=== PATIENT | male | born 1980 | race Two or more races ===

== ENCOUNTER 2019-02-23 07:29 | Day surgery (SDC) | payer MEDICAID ==
[2019-02-23] VITALS (8 sets, daily range): BP systolic 117–144; BP diastolic 75–85
[~2019-02-23] VITALS: Ht 185.4 cm; Wt 128.3 kg
[2019-02-23] MEDS ORDERED: normal saline 1000ml 1,000 ML IV PRN (07:55)
[2019-02-23] MEDS ORDERED: albumin 25% 100mL bottle x 1 IV PRN (07:55)
[2019-02-23] MEDS ORDERED: FOLI1TAB16 PO (11:35)
[2019-02-23] MEDS ORDERED: NALT50TA PO (11:35)
[2019-02-23] MEDS ORDERED: SPIR25TA5 PO (11:35)
== END 2019-02-23 10:30 | disposition home or self-care (01) ==
LOC: SSTAY O 07:29
PROVIDERS: ATTEND Radiology Diagnostic Radiology
DX: K70.31 Alcoholic cirrhosis of liver with ascites (principal); D64.9 Anemia, unspecified; G47.30 Sleep apnea, unspecified; D69.6 Thrombocytopenia, unspecified; Z98.890 Other specified postprocedural states; Z79.899 Other long term (current) drug therapy
CPT/HCPCS: 49083; C1729; J7030; P9047

== ENCOUNTER 2019-03-12 07:39 | Day surgery (SDC) | payer MEDICAID ==
[2019-03-12] VITALS (8 sets, daily range): BP systolic 117–134; BP diastolic 73–92
[~2019-03-12] VITALS: Ht 180.3 cm; Wt 124.1 kg
[~2019-03-12 07:39] MED LIST: FOLI1TAB16 PO; NALT50TA PO; SPIR25TA5 PO
[2019-03-12] MEDS ORDERED: albumin 25% 100mL bottle x 1 IV PRN (07:55)
[2019-03-12] MEDS ORDERED: normal saline 1000ml 1,000 ML IV PRN (07:55)
== END 2019-03-12 10:10 | disposition home or self-care (01) ==
LOC: SSTAY O 07:39
PROVIDERS: ATTEND Radiology Diagnostic Radiology
DX: K70.31 Alcoholic cirrhosis of liver with ascites (principal); D64.9 Anemia, unspecified; G47.30 Sleep apnea, unspecified; D69.6 Thrombocytopenia, unspecified; Z79.899 Other long term (current) drug therapy
CPT/HCPCS: 49083; C1729; J7030; P9047

== ENCOUNTER 2019-03-26 08:34 | Day surgery (SDC) | payer MEDICAID ==
[2019-03-26] VITALS (9 sets, daily range): BP systolic 109–142; BP diastolic 69–95
[~2019-03-26] VITALS: Ht 180.3 cm; Wt 116.8 kg
[2019-03-26] MEDS ORDERED: FURO-149 PO (09:02)
[2019-03-26] MEDS ORDERED: NICO1PAT41 TOP (09:02)
[2019-03-26] MEDS ORDERED: PYRI50TA13 PO (09:02)
[2019-03-26] MEDS ORDERED: MULT-1085 PO (09:02)
[2019-03-26] MEDS ORDERED: NADO20TA PO (09:02)
[2019-03-26] MEDS ORDERED: albumin 25% 100mL bottle x 1 IV PRN (09:10)
== END 2019-03-26 10:55 | disposition home or self-care (01) ==
LOC: SSTAY O 08:34
PROVIDERS: ATTEND Radiology Diagnostic Radiology
DX: K70.31 Alcoholic cirrhosis of liver with ascites (principal); D64.9 Anemia, unspecified; G47.30 Sleep apnea, unspecified; D69.6 Thrombocytopenia, unspecified; Z98.890 Other specified postprocedural states; Z79.899 Other long term (current) drug therapy; Z91.030 Bee allergy status
CPT/HCPCS: 49083; C1729; P9047

== ENCOUNTER 2019-04-08 07:22 | Day surgery (SDC) | payer MEDICAID ==
[~2019-04-08] VITALS: Ht 180.3 cm; Wt 113.4 kg
[~2019-04-08 07:22] MED LIST changes: +FURO-149 PO; +MULT-1085 PO; +NADO20TA PO; +NICO1PAT41 TOP; +PYRI50TA13 PO
[2019-04-08] MEDS ORDERED: normal saline 1000ml 1,000 ML IV SCH (07:50)
[2019-04-08 08:00] VITALS: BP 146/97
[2019-04-08 08:45] VITALS: BP 126/76
[2019-04-08 09:00] VITALS: BP 123/75
[2019-04-08 09:15] VITALS: BP 127/82
[2019-04-08 09:25] VITALS: BP 117/71
== END 2019-04-08 09:30 | disposition home or self-care (01) ==
LOC: SSTAY O 07:22
PROVIDERS: ATTEND Radiology Diagnostic Radiology
DX: K70.31 Alcoholic cirrhosis of liver with ascites (principal); D64.9 Anemia, unspecified; G47.30 Sleep apnea, unspecified; D69.6 Thrombocytopenia, unspecified; Z98.890 Other specified postprocedural states; Z91.030 Bee allergy status; Z79.899 Other long term (current) drug therapy
CPT/HCPCS: 49083; C1729; J7030

== ENCOUNTER 2019-04-30 06:43 | Day surgery (SDC) | payer MEDICAID ==
[~2019-04-30] VITALS: Ht 180.3 cm; Wt 111.2 kg
[2019-04-30] VITALS (7 sets, daily range): BP systolic 114–147; BP diastolic 64–85
[2019-04-30] MEDS ORDERED: LIDOcaine 1% 30ml preserv. free vial IJ STA (06:56)
[2019-04-30] MEDS ORDERED: normal saline 1000ml 1,000 ML IV PRN (07:00)
[2019-04-30] MEDS ORDERED: albumin 25% 100mL bottle x 1 IV PRN (07:00)
== END 2019-04-30 09:55 | disposition home or self-care (01) ==
LOC: SSTAY O 06:43
PROVIDERS: ATTEND Radiology Vascular & Interventional Radiology
DX: K70.31 Alcoholic cirrhosis of liver with ascites (principal); R16.0 Hepatomegaly, not elsewhere classified; R16.1 Splenomegaly, not elsewhere classified; D64.9 Anemia, unspecified; G47.30 Sleep apnea, unspecified; D69.6 Thrombocytopenia, unspecified; Z98.890 Other specified postprocedural states; Z79.899 Other long term (current) drug therapy; Z91.030 Bee allergy status
CPT/HCPCS: 49083; C1729; J2001; J7030

== ENCOUNTER 2019-06-01 06:41 | Day surgery (SDC) | payer MEDICAID ==
[~2019-06-01] VITALS: Ht 180.3 cm; Wt 115.3 kg
[2019-06-01] MEDS ORDERED: albumin 25% 100mL bottle x 1 IV PRN (07:05)
[2019-06-01] MEDS ORDERED: normal saline 1000ml 1,000 ML IV PRN (07:05)
[2019-06-01 07:25] VITALS: BP 145/107
[2019-06-01 08:10] VITALS: BP 155/105
[2019-06-01 08:15] VITALS: BP 154/93
[2019-06-01 08:30] VITALS: BP 145/86
[2019-06-01 08:35] VITALS: BP 148/91
[2019-06-01 08:45] VITALS: BP 135/75
== END 2019-06-01 09:03 | disposition home or self-care (01) ==
LOC: SSTAY O 06:41
PROVIDERS: ATTEND Radiology Diagnostic Radiology
DX: K70.31 Alcoholic cirrhosis of liver with ascites (principal); D64.9 Anemia, unspecified; G47.30 Sleep apnea, unspecified; D69.6 Thrombocytopenia, unspecified; Z98.890 Other specified postprocedural states; Z79.899 Other long term (current) drug therapy
CPT/HCPCS: 49083; C1729; J7030

== ENCOUNTER 2020-01-10 08:22 | Inpatient (IN) | payer MEDICAID ==
[~2020-01-10] VITALS: Ht 180.3 cm; Wt 127.0 kg
[2020-01-10] MEDS ORDERED: LORazepam 2 mg/ml vial IV ONE ×4 (08:40→13:20)
[2020-01-10] MEDS ORDERED: normal saline 1000ML IV soln IVB ONE (08:40)
[2020-01-10 09:03] LABS: HEMOGLOBIN 9.7 g/dl (14.0-17.9); LYMPHOCYTES # (AUTO) 0.6 X10'3 (1.1-4.8); NEUTROPHILS # (AUTO) 3.3 X10'3 (1.8-7.7); WHITE BLOOD COUNT 4.3 X10'3 (4.5-11.0)
[2020-01-10 09:05] LABS: BASOPHILS # (AUTO) 0.1 X10'3 (0-0.2); BASOPHILS % (AUTO) 1.6 % (0-1); EOSINOPHILS % (AUTO) 0.1 % (0-6); LYMPHOCYTES % (AUTO) 13.8 % (21-51); MEAN CORPUSCULAR HEMOGLOBIN 18.8 PG (27.0-31.0); MEAN CORPUSCULAR HGB CONC 29.2 g/dL (33.0-36.5); MEAN CORPUSCULAR VOLUME 64.3 FL (78-98); MEAN PLATELET VOLUME 9.5 FL (7.4-10.4); MONOCYTES # (AUTO) 0.3 X10'3 (0-0.9); MONOCYTES % (AUTO) 7.3 % (2-12); NEUTROPHILS % (AUTO) 77.2 % (42-75); PLATELET COUNT 102 X10'3 (140-440); RED BLOOD COUNT 5.16 X10'6 (4.70-6.10); RED CELL DISTRIBUTION WIDTH 20.8 % (11.5-14.5)
[2020-01-10 09:16] LABS: ALANINE AMINOTRANSFERASE 38 U/L (12-78); ALBUMIN 3.1 G/DL (3.4-5.0); ALBUMIN/GLOBULIN RATIO 0.8 (1.1-1.5); ALKALINE PHOSPHATASE 128 IU/L (46-116); ANION GAP 11 (8-16); ASPARTATE AMINO TRANSFERASE 101 U/L (10-37); BILIRUBIN,TOTAL 2.9 MG/DL (0.1-1.0); BLOOD UREA NITROGEN 6 MG/DL (7-18); BUN/CREATININE RATIO 7.3 (5.4-32.0); CALCIUM 8.1 MG/DL (8.5-10.1); CHLORIDE 103 MMOL/L (99-107); CREATININE 0.82 MG/DL (0.60-1.10); GLUCOSE 139 MG/DL (70-104); POTASSIUM 3.2 MMOL/L (3.5-5.1); SODIUM 143 MMOL/L (135-145); TOTAL CARBON DIOXIDE 29.4 MMOL/L (24-32); TOTAL PROTEIN 7.2 G/DL (6.4-8.2); eGFR > 90 ML/MIN
[2020-01-10 09:23] LABS: MAGNESIUM 1.5 MG/DL (1.5-2.4)
[2020-01-10 09:24] LABS: HEMATOCRIT 33.2 % (42.0-52.0)
[2020-01-10 10:10] LABS: ANISOCYTOSIS 3+; MICROCYTOSIS 2+; PLATELET ESTIMATE DECREASED
[2020-01-10 10:13] LABS: HYPOCHROMASIA 2+
[2020-01-10] MEDS ORDERED: potassium Cl 20 mEq SR tablet PO PRN ×2 (10:45)
[2020-01-10] MEDS ORDERED: potassium CL 10mEq/100ml bag 100 ML IV PRN (10:45)
[2020-01-10] MEDS ORDERED: magnesium 2GM in 50ml NS 50 ML IV ONE (10:45)
[2020-01-10] MEDS ORDERED: LORazepam 1 MG tablet PO ONE (11:00)
--- NOTE | 2020-01-10 11:00 | NUR ---
New order for Ativan 4mg, PO received from [facility] for [facility].
[2020-01-10] MEDS ORDERED: albumin (human) 25% 100 ML IV solution IV ONE (11:10)
[2020-01-10] MEDS ORDERED: NO HOME MEDS (12:21)
[2020-01-10] MEDS ORDERED: thiamine 100mg/ml 2ml inj. IV ONE ×2 (12:50→13:10)
[2020-01-10] MEDS ORDERED: phenobarbital inj 260 MG in normal saline 100ml IV soln 98 ML IV ONE (12:50)
[2020-01-10] MEDS ORDERED: folic acid 1mg tablet PO ONE (12:50)
[2020-01-10] MEDS ORDERED: LORazepam 2 mg/ml vial IV PRN ×2 (13:10)
[2020-01-10] MEDS ORDERED: acetaminophen 325mg tablet PO PRN (13:10)
[2020-01-10] MEDS ORDERED: dextrose 50%-water 50ml dispensing syringe IV PRN (13:10)
[2020-01-10] MEDS ORDERED: ondansetron/PF 4mg/2ml inj IV PRN (13:10)
[2020-01-10] MEDS ORDERED: magnesium hydroxide 30ml (MOM) UD suspension PO PRN (13:10)
[2020-01-10] MEDS ORDERED: mag hydrox/Alum hydrox/simeth 30ml oral suspension PO PRN (13:10)
[2020-01-10] MEDS ORDERED: iohexol 350MG/ML 100ml bottle IV ONE (13:14)
[2020-01-10 13:56] LABS: LIPASE 274 U/L (73-393)
--- NOTE | 2020-01-10 14:49 | NUR ---
RECEIVED TELEPHONE REPORT LAZARUS SINGH RN
[2020-01-10 15:00] VITALS: BP 158/104
--- NOTE | 2020-01-10 15:00 | NUR ---
RECEIVED FROM ED VIA [facility]. SOB, AT BEDSIDE.
--- NOTE | 2020-01-10 15:36 | NUR ---
PAGER ID: [phone] MESSAGE: DR. BEAULIEU, [id number], REQUESTING NICOTINE PATCH(FOR PT), SMOKES 7 CIGS/DAY. CAN I PLEASE DC THE NS AT 20CC/HOUR? WITH ALL HIS MOVEMENT, I THINK WE WOULD LOOSE HIS PIV. DIANA, [id number]. TY
[2020-01-10] MEDS ORDERED: heparin 10,000 units/1 ML INJ IV PRN (15:40)
[2020-01-10] MEDS ORDERED: heparin 10,000 units/1 ML INJ IV ONE (15:40)
--- NOTE | 2020-01-10 16:15 | NUR ---
ORDER FOR HEPARIN GTT. NO PTT. DISCUSSED WITH SHILPA CORONADO RN. STATES YOU DON'T HAVE TO WAIT FOR BASELINE PTT, OKAY TO START GTT"
[2020-01-10] MEDS: heparin 25,000 UNIT/250ml bag 250 ML IV SCH (16:44)
[2020-01-10] MEDS: nicotine 14mg patch - 24hr TD SCH (17:12)
[2020-01-10] MEDS: normal saline 1000ml 1,000 ML IV SCH (17:13)
[2020-01-10 18:00] VITALS: BP 161/96
--- NOTE | 2020-01-10 18:34 | NUR ---
Patient in room PCU 3028. I have received report from Gino SWAN and had the opportunity to ask questions and assume patient care.
--- NOTE | 2020-01-10 18:36 | NUR ---
Problems reprioritized. Patient report given, questions answered & plan of care reviewed with SOSA KATHLEEN.
[2020-01-10] MEDS ORDERED: heparin, porcine 5000 units/ml vial SQ SCH (20:00)
[2020-01-10] MEDS: CefTRIAXone 2gm/D5W 50ml 50 ML IV SCH (21:30)
[2020-01-10 22:00] VITALS: BP 133/87
--- NOTE | 2020-01-11 01:35 | NUR ---
Patient in room PCU 3028. I have received report from Sakshi SWAN and had the opportunity to ask questions and assume patient care.
[2020-01-11] MEDS: morphine 2 MG/ML inj. syringe IV PRN ×5 (02:54→22:46)
[2020-01-11 02:57] VITALS: BP 136/75
[2020-01-11 02:59] LABS: LYMPHOCYTES # (AUTO) 0.9 X10'3 (1.1-4.8); MEAN CORPUSCULAR HGB CONC 29.3 g/dL (33.0-36.5); WHITE BLOOD COUNT 3.2 X10'3 (4.5-11.0)
[2020-01-11 03:03] LABS: BASOPHILS % (AUTO) 1.1 % (0-1); EOSINOPHILS % (AUTO) 1.5 % (0-6); HEMATOCRIT 30.2 % (42.0-52.0); HEMOGLOBIN 8.8 g/dl (14.0-17.9); LYMPHOCYTES % (AUTO) 27.6 % (21-51); MEAN CORPUSCULAR HEMOGLOBIN 19.3 PG (27.0-31.0); MEAN PLATELET VOLUME 9.6 FL (7.4-10.4); MONOCYTES # (AUTO) 0.2 X10'3 (0-0.9); MONOCYTES % (AUTO) 7.2 % (2-12); NEUTROPHILS % (AUTO) 62.6 % (42-75); PLATELET COUNT 85 X10'3 (140-440); RED BLOOD COUNT 4.58 X10'6 (4.70-6.10); RED CELL DISTRIBUTION WIDTH 21.2 % (11.5-14.5)
[2020-01-11 03:10] LABS: ALANINE AMINOTRANSFERASE 28 U/L (12-78); ALBUMIN 2.9 G/DL (3.4-5.0); ALBUMIN/GLOBULIN RATIO 0.8 (1.1-1.5); ALKALINE PHOSPHATASE 99 IU/L (46-116); ANION GAP 6 (8-16); ASPARTATE AMINO TRANSFERASE 76 U/L (10-37); BILIRUBIN,TOTAL 2.6 MG/DL (0.1-1.0); BLOOD UREA NITROGEN 6 MG/DL (7-18); BUN/CREATININE RATIO 7.1 (5.4-32.0); CALCIUM 8.1 MG/DL (8.5-10.1); CHLORIDE 106 MMOL/L (99-107); CREATININE 0.84 MG/DL (0.60-1.10); GLUCOSE 84 MG/DL (70-104); POTASSIUM 3.6 MMOL/L (3.5-5.1); SODIUM 144 MMOL/L (135-145); TOTAL CARBON DIOXIDE 31.9 MMOL/L (24-32); TOTAL PROTEIN 6.5 G/DL (6.4-8.2); eGFR > 90 ML/MIN
[2020-01-11 03:24] LABS: ANISOCYTOSIS 3+; HYPOCHROMASIA 2+; PLATELET ESTIMATE DECREASED
[2020-01-11 03:25] LABS: MICROCYTOSIS 2+
[2020-01-11] MEDS: heparin 25,000 UNIT/250ml bag 250 ML IV SCH ×2 (05:13→19:15)
--- NOTE | 2020-01-11 06:25 | NUR ---
Problems reprioritized. Patient report given, questions answered & plan of care reviewed with Sofie SWAN.
--- NOTE | 2020-01-11 06:47 | NUR ---
Patient in room PCU 3028. I have received report from Yady SWAN and had the opportunity to ask questions and assume patient care.
[2020-01-11 07:00] VITALS: BP 132/87
[2020-01-11] MEDS: CefTRIAXone 2gm/D5W 50ml 50 ML IV SCH (07:03)
--- NOTE | 2020-01-11 07:47 | NUR ---
Called Angio/IR department, spoke to the staff to let them know patient is currently on heparin drip for treatment of PE
[2020-01-11] MEDS ORDERED: folic acid inj. 2 MG, thiamine inj. 100 MG, MVI, adult No.4 with vit. K 10 ML in dextro... IV SCH ×4 (08:00)
[2020-01-11] MEDS: nicotine 14mg patch - 24hr TD SCH (08:40)
--- NOTE | 2020-01-11 09:10 | NUR ---
Called lab to get the PTT draw done as patient is on Heparin drip
--- NOTE | 2020-01-11 09:25 | NUR ---
I notified the yarn salvager on the floor that this patient has not had his PTT drawn yet and that if she can do it NAIDA because it was due 0845am. She said she will do it next after the patient from another room
--- NOTE | 2020-01-11 09:31 | NUR ---
Paged Dr. Epstein PAGER ID: [phone] MESSAGE: REBECCA Carrizales RN ext [phone]. RE: Marlon Curiel. IR dept aware that patient is on Heparin drip and that they advised me to ask what you want us to do in regards to thoracentesis order
--- NOTE | 2020-01-11 10:34 | NUR ---
Dr. Epstein seen patient and spoke to the at bedside. Dr. Epstein aware that thoracentesis will not get done today due to heparin drip, he ordered to have heparin drip hold tomorrow at 06:00am. I called IR department to let them know the plan about thoracentesis tomorrow. The staff I spoke (I forgot her name) asked me to clarify with Dr. Epstein if he wants it done since patient just had thoracentesis done yesterday at ER
--- NOTE | 2020-01-11 10:43 | NUR ---
PAGER ID: [phone] MESSAGE: REBECCA Carrizales RN ext [phone]. RE: Marlon Curiel. IR dept asking if you still want thoracentesis done tomorrow since patient just had it yesterday at ER.
--- NOTE | 2020-01-11 10:47 | NUR ---
Paged Vascular to get the bilateral venous ultrasound of the both legs done today
[2020-01-11 11:00] VITALS: BP 140/92
--- NOTE | 2020-01-11 11:25 | NUR ---
I spoke to IR staff Nicko letting him know that I already paged the doctor to ask about their request to clarify thoracentesis if he still want it done since patient just had thoracentesis done at ER yesterday. I let him know we will just prep the patient tomorrow and he told me that they will have to scan the patient tomorrow to see if there is enough fluid to take out
--- NOTE | 2020-01-11 11:48 | NUR ---
Sakshi RN from came talked to me about the thoracentesis that it could not get done today and may be not tomorrow either as it was just done yesterday at ER. I asked her to contact Dr. Epstein to let him know about this as I already paged him and has not responded to my page message yet. She said she will try to contact Dr. Epstein also
[2020-01-11 15:00] VITALS: BP 142/87
--- NOTE | 2020-01-11 17:56 | NUR ---
Paged Dr. Epstein PAGER ID: [phone] MESSAGE: Surgical Flr Sofie RN ext [phone]. RE: Marlon Curiel. Patient requesting Covid19 test so they can have peace of mind if he is positive or negative.
[2020-01-11 18:00] VITALS: BP 146/78
--- NOTE | 2020-01-11 18:00 | NUR ---
Patient in room PCU 3028. I have received report from Melisa SWAN and had the opportunity to ask questions and assume patient care.
--- NOTE | 2020-01-11 18:53 | NUR ---
Problems reprioritized. Patient report given, questions answered & plan of care reviewed with Sakshi SWAN.
[2020-01-11] MEDS: LORazepam 1 MG tablet PO PRN (21:06)
[2020-01-11 22:00] VITALS: BP 133/81
[2020-01-12] VITALS (8 sets, daily range): BP systolic 112–147; BP diastolic 72–94
[2020-01-12] MEDS: morphine 2 MG/ML inj. syringe IV PRN ×4 (02:54→21:01)
[2020-01-12] MEDS: LORazepam 1 MG tablet PO PRN ×2 (04:36→12:06)
[2020-01-12] MEDS: heparin 25,000 UNIT/250ml bag 250 ML IV SCH ×2 (05:18→16:38)
[2020-01-12 05:26] LABS: EOSINOPHILS # (AUTO) 0.1 X10'3 (0-0.9); MONOCYTES # (AUTO) 0.2 X10'3 (0-0.9); RED BLOOD COUNT 4.75 X10'6 (4.70-6.10); WHITE BLOOD COUNT 3.2 X10'3 (4.5-11.0)
[2020-01-12 05:28] LABS: BASOPHILS % (AUTO) 1.1 % (0-1); EOSINOPHILS % (AUTO) 1.9 % (0-6); LYMPHOCYTES % (AUTO) 29.9 % (21-51); MEAN CORPUSCULAR HGB CONC 29.2 g/dL (33.0-36.5); MEAN CORPUSCULAR VOLUME 65.2 FL (78-98); MONOCYTES % (AUTO) 5.2 % (2-12); NEUTROPHILS % (AUTO) 61.9 % (42-75); RED CELL DISTRIBUTION WIDTH 21.4 % (11.5-14.5)
[2020-01-12 05:34] LABS: ALANINE AMINOTRANSFERASE 28 U/L (12-78); ALBUMIN 2.8 G/DL (3.4-5.0); ALBUMIN/GLOBULIN RATIO 0.8 (1.1-1.5); ALKALINE PHOSPHATASE 108 IU/L (46-116); ANION GAP 7 (8-16); ASPARTATE AMINO TRANSFERASE 88 U/L (10-37); BLOOD UREA NITROGEN 9 MG/DL (7-18); BUN/CREATININE RATIO 10.1 (5.4-32.0); CHLORIDE 105 MMOL/L (99-107); CREATININE 0.89 MG/DL (0.60-1.10); GLUCOSE 99 MG/DL (70-104); POTASSIUM 3.5 MMOL/L (3.5-5.1); SODIUM 142 MMOL/L (135-145); TOTAL CARBON DIOXIDE 30.3 MMOL/L (24-32); TOTAL PROTEIN 6.4 G/DL (6.4-8.2); eGFR > 90 ML/MIN
[2020-01-12 05:47] LABS: PLATELET COUNT 88 X10'3 (140-440)
--- NOTE | 2020-01-12 05:55 | NUR ---
Heparin gtt stopped per Dr Epstein miscellaneous order to stop at 6am for possible thoracentesis later today.
--- NOTE | 2020-01-12 06:15 | NUR ---
Patient in room PCU 3028. I have received report from Sakshi SWAN and had the opportunity to ask questions and assume patient care. Pt. awoke on entering room, asking for antinausea/pain medication.
--- NOTE | 2020-01-12 06:19 | NUR ---
Problems reprioritized. Patient report given, questions answered & plan of care reviewed with Karyn SWAN and Que SWAN.
--- NOTE | 2020-01-12 06:25 | NUR ---
Patient in room PCU 3028. I have received report from SOSA Cantor and had the opportunity to ask questions and assume patient care. Pt resting comfortably, CPAP on.
[2020-01-12 06:31] LABS: ANISOCYTOSIS 2+; LARGE PLATELETS FEW; PLATELET ESTIMATE DECREASED
[2020-01-12 06:32] LABS: HYPOCHROMASIA 2+
[2020-01-12 06:33] LABS: MICROCYTOSIS 2+; STOMATOCYTES 1+; TARGET CELLS FEW
[2020-01-12] MEDS: nicotine 14mg patch - 24hr TD SCH (08:28)
[2020-01-12] MEDS: CefTRIAXone 2gm/D5W 50ml 50 ML IV SCH (08:28)
[2020-01-12] MEDS: folic acid 1mg tablet PO SCH (08:28)
[2020-01-12] MEDS: thiamine 100mg tablet PO SCH (08:29)
[2020-01-12] MEDS: multivitamins, therapeutics tablet PO SCH (08:29)
--- NOTE | 2020-01-12 11:09 | NUR ---
Paged Dr Epstein PAGER ID: [phone] MESSAGE: Re: Veena Marlon [id number] There is no order in the computer for a thoracentesis, would you like me to put one in? Thanks Karyn Tidwell [phone]
[2020-01-12] MEDS: normal saline 1000ml 1,000 ML IV SCH ×2 (13:06→16:34)
--- NOTE | 2020-01-12 14:00 | NUR ---
Per Dr Epstein's orders, place patient back on the heparin gtt per DVT protocol. And stop Eliquis.
[2020-01-12] MEDS ORDERED: apixaban 5mg tablet PO SCH ×2 (15:40→20:00)
[2020-01-12] MEDS ORDERED: heparin 10,000 units/1 ML INJ IV ONE (16:15)
[2020-01-12] MEDS ORDERED: heparin 10,000 units/1 ML INJ IV PRN (16:15)
--- NOTE | 2020-01-12 18:00 | NUR ---
[place]rientee documentation: I have reviewed and agree with all interventions, assessments performed and documented by SOSA Grey.
--- NOTE | 2020-01-12 18:16 | NUR ---
Problems reprioritized. Patient report given, questions answered & plan of care reviewed with SOSA Santiago. Pt resting comfortably, using CPAP.
--- NOTE | 2020-01-12 18:17 | NUR ---
[place] Medication Administration: For this medication-pass time frame, all medication were reviewed, dispensed, administered and documented per hospital policy by SOSA Grey.
--- NOTE | 2020-01-12 23:00 | NUR ---
pt PTT 51 which is therapeutic, will continue heparin GTT at same rate and continue to monitor pt closely
--- NOTE | 2020-01-13 00:39 | NUR ---
PAGER ID: [phone] MESSAGE: Marlon Curiel [id number] admitted for alcohol withdrawal pt is requesting for something to help him sleep please? thank you Pamela SWAN [phone]
[2020-01-13] MEDS ORDERED: diphenhydrAMINE 50 mg/ml inj IV PRN (00:40)
[2020-01-13] MEDS: morphine 2 MG/ML inj. syringe IV PRN ×3 (01:37→19:31)
[2020-01-13] MEDS: heparin 25,000 UNIT/250ml bag 250 ML IV SCH ×4 (05:53→17:27)
[2020-01-13 06:08] LABS: EOSINOPHILS # (AUTO) 0.1 X10'3 (0-0.9); HEMOGLOBIN 9.1 g/dl (14.0-17.9); LYMPHOCYTES # (AUTO) 0.9 X10'3 (1.1-4.8); MEAN CORPUSCULAR HEMOGLOBIN 19.1 PG (27.0-31.0); MEAN CORPUSCULAR HGB CONC 29.2 g/dL (33.0-36.5); MEAN CORPUSCULAR VOLUME 65.5 FL (78-98); MONOCYTES # (AUTO) 0.2 X10'3 (0-0.9); NEUTROPHILS # (AUTO) 2.1 X10'3 (1.8-7.7); WHITE BLOOD COUNT 3.3 X10'3 (4.5-11.0)
[2020-01-13 06:11] LABS: BASOPHILS # (AUTO) 0.1 X10'3 (0-0.2); BASOPHILS % (AUTO) 1.6 % (0-1); EOSINOPHILS % (AUTO) 1.8 % (0-6); HEMATOCRIT 31.2 % (42.0-52.0); LYMPHOCYTES % (AUTO) 26.3 % (21-51); MONOCYTES % (AUTO) 7.2 % (2-12); NEUTROPHILS % (AUTO) 63.1 % (42-75); PLATELET COUNT 90 X10'3 (140-440); RED BLOOD COUNT 4.77 X10'6 (4.70-6.10); RED CELL DISTRIBUTION WIDTH 21.3 % (11.5-14.5)
--- NOTE | 2020-01-13 06:15 | NUR ---
Patient in room U 3028. I have received report from Pamela SWAN and had the opportunity to ask questions and assume patient care. Patient sleeping in bed.
[2020-01-13 06:24] LABS: ALANINE AMINOTRANSFERASE 29 U/L (12-78); ALBUMIN 2.6 G/DL (3.4-5.0); ALBUMIN/GLOBULIN RATIO 0.7 (1.1-1.5); ALKALINE PHOSPHATASE 113 IU/L (46-116); ANION GAP 7 (8-16); ASPARTATE AMINO TRANSFERASE 80 U/L (10-37); BILIRUBIN,TOTAL 1.5 MG/DL (0.1-1.0); BLOOD UREA NITROGEN 9 MG/DL (7-18); BUN/CREATININE RATIO 11.1 (5.4-32.0); CHLORIDE 106 MMOL/L (99-107); CREATININE 0.81 MG/DL (0.60-1.10); GLUCOSE 91 MG/DL (70-104); POTASSIUM 3.6 MMOL/L (3.5-5.1); SODIUM 141 MMOL/L (135-145); TOTAL CARBON DIOXIDE 28.3 MMOL/L (24-32); TOTAL PROTEIN 6.2 G/DL (6.4-8.2); eGFR > 90 ML/MIN
--- NOTE | 2020-01-13 06:35 | NUR ---
Patient in room PCU 3028. I have received report from SOSA Santiago and had the opportunity to ask questions and assume patient care. Pt sleeping comfortably, CPAP in place, heparin gtt running at 2000u/hr and NS running at 20ml/hr.
--- NOTE | 2020-01-13 06:43 | NUR ---
Problems reprioritized. Patient report given, questions answered & plan of care reviewed with Karyn SWAN.
[2020-01-13 07:00] VITALS: BP 128/85
[2020-01-13] MEDS: multivitamins, therapeutics tablet PO SCH (08:49)
[2020-01-13] MEDS: nicotine 14mg patch - 24hr TD SCH (08:50)
[2020-01-13] MEDS: folic acid 1mg tablet PO SCH (08:50)
[2020-01-13] MEDS: CefTRIAXone 2gm/D5W 50ml 50 ML IV SCH (08:50)
[2020-01-13] MEDS: thiamine 100mg tablet PO SCH (08:54)
[2020-01-13] MEDS: LORazepam 1 MG tablet PO PRN ×2 (10:26→19:31)
[2020-01-13 10:34] LABS: ANISOCYTOSIS 3+; MICROCYTOSIS 2+; PLATELET ESTIMATE DECREASED
[2020-01-13 10:35] LABS: STOMATOCYTES 1+
[2020-01-13 10:36] LABS: SCHISTOCYTES FEW
--- NOTE | 2020-01-13 10:45 | NUR ---
Per Dr Epstein's orders, stop the use of CPAP and only use nasal cannula 2L. Keep 02 greater than 90%.
[2020-01-13 11:00] VITALS: BP 129/77
[2020-01-13 15:00] VITALS: BP 107/68
--- NOTE | 2020-01-13 18:26 | NUR ---
Problems reprioritized. Patient report given, questions answered & plan of care reviewed with SOSA Marsh. Patient stable at transfer of care.
--- NOTE | 2020-01-13 18:27 | NUR ---
[place]rientee documentation: I have reviewed and agree with all interventions, assessments performed and documented by SOSA Grey.
--- NOTE | 2020-01-13 18:28 | NUR ---
[place]rientee documentation: I have reviewed and agree with all interventions, assessments performed and documented by SOSA Grey.
--- NOTE | 2020-01-13 18:34 | NUR ---
Patient in room PCU 3028. I have received report from Yen SWAN and had the opportunity to ask questions and assume patient care.
[2020-01-13 19:00] VITALS: BP 145/87
[2020-01-13 23:00] VITALS: BP 149/82
[2020-01-14] MEDS: LORazepam 1 MG tablet PO PRN ×2 (00:40→04:58)
[2020-01-14] MEDS: morphine 2 MG/ML inj. syringe IV PRN ×3 (00:40→09:20)
[2020-01-14 03:00] VITALS: BP 138/85
[2020-01-14] MEDS: heparin 25,000 UNIT/250ml bag 250 ML IV SCH (04:57)
--- NOTE | 2020-01-14 06:27 | NUR ---
Problems reprioritized. Patient report given, questions answered & plan of care reviewed with Karyn SWAN.
[2020-01-14 06:29] LABS: EOSINOPHILS # (AUTO) 0.1 X10'3 (0-0.9); HEMOGLOBIN 9.4 g/dl (14.0-17.9); LYMPHOCYTES # (AUTO) 0.8 X10'3 (1.1-4.8); WHITE BLOOD COUNT 3.7 X10'3 (4.5-11.0)
[2020-01-14 06:31] LABS: BASOPHILS % (AUTO) 1.3 % (0-1); HEMATOCRIT 31.4 % (42.0-52.0); MEAN CORPUSCULAR HEMOGLOBIN 19.6 PG (27.0-31.0); MEAN CORPUSCULAR HGB CONC 29.8 g/dL (33.0-36.5); MEAN CORPUSCULAR VOLUME 65.6 FL (78-98); MEAN PLATELET VOLUME 9.5 FL (7.4-10.4); MONOCYTES # (AUTO) 0.3 X10'3 (0-0.9); NEUTROPHILS # (AUTO) 2.5 X10'3 (1.8-7.7); NEUTROPHILS % (AUTO) 66.7 % (42-75); PLATELET COUNT 82 X10'3 (140-440); RED BLOOD COUNT 4.79 X10'6 (4.70-6.10)
[2020-01-14 06:40] LABS: ALANINE AMINOTRANSFERASE 30 U/L (12-78); ALBUMIN 2.7 G/DL (3.4-5.0); ALBUMIN/GLOBULIN RATIO 0.7 (1.1-1.5); ALKALINE PHOSPHATASE 114 IU/L (46-116); ANION GAP 7 (8-16); ASPARTATE AMINO TRANSFERASE 69 U/L (10-37); BILIRUBIN,TOTAL 1.8 MG/DL (0.1-1.0); BLOOD UREA NITROGEN 8 MG/DL (7-18); BUN/CREATININE RATIO 10.4 (5.4-32.0); CHLORIDE 105 MMOL/L (99-107); CREATININE 0.77 MG/DL (0.60-1.10); GLUCOSE 94 MG/DL (70-104); POTASSIUM 3.7 MMOL/L (3.5-5.1); SODIUM 139 MMOL/L (135-145); TOTAL CARBON DIOXIDE 27.1 MMOL/L (24-32); TOTAL PROTEIN 6.5 G/DL (6.4-8.2); eGFR > 90 ML/MIN
--- NOTE | 2020-01-14 06:53 | NUR ---
Patient in room PCU 3028. I have received report from Maximo SWAN and had the opportunity to ask questions and assume patient care.
[2020-01-14 07:00] VITALS: BP 145/78
[2020-01-14 07:04] LABS: LARGE PLATELETS FEW; PLATELET ESTIMATE DECREASED
[2020-01-14 07:05] LABS: ANISOCYTOSIS 3+; HYPOCHROMASIA 2+; MICROCYTOSIS 2+; POLYCHROMASIA 1+; STOMATOCYTES 1+
--- NOTE | 2020-01-14 07:22 | NUR ---
Patient was found in bathroom. Patient pulled both IV out including heoparin drip. Patient states he is going home. Xray in home now.
[2020-01-14] MEDS: thiamine 100mg tablet PO SCH (07:53)
[2020-01-14] MEDS: folic acid 1mg tablet PO SCH (07:53)
[2020-01-14] MEDS: multivitamins, therapeutics tablet PO SCH (07:53)
[2020-01-14] MEDS: nicotine 14mg patch - 24hr TD SCH (07:54)
--- NOTE | 2020-01-14 08:15 | NUR ---
Paged PICC nurse Re: Marlon Curiel [id number]. Needing a line, very hard stick. Please and Thank you Karyn SWAN [phone]
[2020-01-14] MEDS: CefTRIAXone 2gm/D5W 50ml 50 ML IV SCH (09:20)
--- NOTE | 2020-01-14 10:02 | NUR ---
Dr. Epstein at bedside with patient and nurse. New orders is to Stop Heparin and start discharge process. Will continue to monitor,
[2020-01-14 11:00] VITALS: BP 167/86
[2020-01-14] MEDS ORDERED: FOLI0.4T2 PO (13:12)
[2020-01-14] MEDS ORDERED: THIA100T70 PO (13:12)
[2020-01-14] MEDS ORDERED: LEVO500T89 PO (13:12)
[2020-01-14] MEDS ORDERED: APIX5TAB3 PO (13:12)
--- NOTE | 2020-01-14 13:47 | NUR ---
Patient ok to discharged per MD Orders. Patient's tele was removed and IV removed. All patients personal items were collected and gathered and sent with patient. Patient was transported via wheelchair by RN. All discharge instructions were gone over and educated. Manny his accompanied patient and was educated on material. Patient was stable and able to ambulate himself.
[2020-01-15] MEDS ORDERED: TRAM50TA2 PO (16:32)
== END 2020-01-14 14:19 | disposition home health service (06) | DRG 134 ==
LOC: ER 08:22 → ED HOLD 13:09 → PCU 3S 15:00
PROVIDERS: ADMIT Family Medicine; ATTEND Family Medicine
PROC: 5A09357 Assistance with Respiratory Ventilation, Less than 24 Consecutive Hours, Continuous Positive Airway Pressure (ICD-10-PCS; principal; 2020-01-10)
PROC: B32T1ZZ Computerized Tomography (CT Scan) of Left Pulmonary Artery using Low Osmolar Contrast (ICD-10-PCS; 2020-01-10)
PROC: B3201ZZ Computerized Tomography (CT Scan) of Thoracic Aorta using Low Osmolar Contrast (ICD-10-PCS; 2020-01-10)
PROC: B32S1ZZ Computerized Tomography (CT Scan) of Right Pulmonary Artery using Low Osmolar Contrast (ICD-10-PCS; 2020-01-10)
PROC: 0W9G3ZZ Drainage of Peritoneal Cavity, Percutaneous Approach (ICD-10-PCS; 2020-01-10)
PROC: 0W993ZZ Drainage of Right Pleural Cavity, Percutaneous Approach (ICD-10-PCS; 2020-01-10)
PROC: 5A09357 Assistance with Respiratory Ventilation, Less than 24 Consecutive Hours, Continuous Positive Airway Pressure (ICD-10-PCS; 2020-01-12)
DX: I26.99 Other pulmonary embolism without acute cor pulmonale (principal); J96.01 Acute respiratory failure with hypoxia; J18.9 Pneumonia, unspecified organism; D69.59 Other secondary thrombocytopenia; J91.8 Pleural effusion in other conditions classified elsewhere; K70.31 Alcoholic cirrhosis of liver with ascites; J93.9 Pneumothorax, unspecified; D50.9 Iron deficiency anemia, unspecified; F17.210 Nicotine dependence, cigarettes, uncomplicated; F10.230 Alcohol dependence with withdrawal, uncomplicated; G47.30 Sleep apnea, unspecified; M54.9 Dorsalgia, unspecified; R00.0 Tachycardia, unspecified
CPT/HCPCS: 32555; 36415; 49083; 71045; 71046; 71275; 76937; 80053; 83540; 83550; 83605; 83690; 83735; 83880; 84145; 84443; 84484; 85025; 85610; 85730; 87081; 93005; 93970; 96365; 96375; 96376; 99285; G0378; J0696; J1200; J1644; J2060; J2270; J2560; J3411; J3475; J3490; J7030; J7060; P9047; Q9967

== ENCOUNTER 2020-01-21 07:50 | Day surgery (SDC) | payer MEDICAID ==
[2020-01-21] VITALS (7 sets, daily range): BP systolic 123–135; BP diastolic 65–83
[~2020-01-21] VITALS: Ht 177.8 cm; Wt 120.0 kg
[~2020-01-21 07:50] MED LIST changes: +APIX5TAB3 PO; +FOLI0.4T2 PO; -FOLI1TAB16 PO; -FURO-149 PO; -MULT-1085 PO; -NADO20TA PO; -NALT50TA PO; -NICO1PAT41 TOP; -PYRI50TA13 PO; -SPIR25TA5 PO; +THIA100T70 PO; +TRAM50TA2 PO
[2020-01-21] MEDS ORDERED: normal saline 1000ml 1,000 ML IV SCH (08:10)
[2020-01-21] MEDS ORDERED: SPIR25TA5 PO (08:36)
[2020-01-21] MEDS ORDERED: NALT50TA PO (08:36)
[2020-01-21] MEDS ORDERED: FOLI0.4T2 PO (08:40)
[2020-01-21] MEDS ORDERED: APIX5TAB3 PO (08:40)
[2020-01-21] MEDS ORDERED: THIA50TA10 PO (08:41)
[2020-01-21] MEDS ORDERED: albumin (human) 25% 100ml IV 100 ML IV PRN (09:00)
[2020-01-21] MEDS ORDERED: albumin (human) 25% 100ml IV 100 ML IV ONE (09:13)
[2020-01-24] MEDS ORDERED: albumin (human) 25% 100ml IV 100 ML IV PRN (10:45)
== END 2020-01-21 10:30 | disposition home or self-care (01) ==
LOC: SSTAY O 07:50
PROVIDERS: ATTEND Radiology Diagnostic Radiology
DX: K70.31 Alcoholic cirrhosis of liver with ascites (principal); D64.9 Anemia, unspecified; G47.30 Sleep apnea, unspecified; D69.6 Thrombocytopenia, unspecified; Z86.711 Personal history of pulmonary embolism; Z98.890 Other specified postprocedural states; F10.20 Alcohol dependence, uncomplicated; Z79.899 Other long term (current) drug therapy
CPT/HCPCS: 49083; P9047

== ENCOUNTER 2020-02-04 08:01 | Day surgery (SDC) | payer MEDICAID ==
[~2020-02-04] VITALS: Ht 177.8 cm; Wt 124.3 kg
[2020-02-04] VITALS (11 sets, daily range): BP systolic 105–161; BP diastolic 59–116
[~2020-02-04 08:01] MED LIST changes: +NALT50TA PO; +SPIR25TA5 PO; -THIA100T70 PO; +THIA50TA10 PO; -TRAM50TA2 PO
[2020-02-04] MEDS ORDERED: normal saline 1000ml 1,000 ML IV PRN (08:20)
[2020-02-04] MEDS ORDERED: albumin 25% 100mL bottle x 1 IV PRN (08:20)
== END 2020-02-04 10:53 | disposition home or self-care (01) ==
LOC: SSTAY O 08:01
PROVIDERS: ATTEND Radiology Vascular & Interventional Radiology
DX: K70.31 Alcoholic cirrhosis of liver with ascites (principal); J90 Pleural effusion, not elsewhere classified; F10.239 Alcohol dependence with withdrawal, unspecified; D64.9 Anemia, unspecified; G47.30 Sleep apnea, unspecified; D69.6 Thrombocytopenia, unspecified; Z86.711 Personal history of pulmonary embolism; Z87.01 Personal history of pneumonia (recurrent)
CPT/HCPCS: 32555; 49083; 71045; P9047

== ENCOUNTER 2020-02-06 13:14 | Inpatient (IN) | payer MEDICAID ==
[~2020-02-06] VITALS: Ht 177.8 cm; Wt 110.0 kg
--- NOTE | 2020-02-06 13:29 | NUR ---
pt brought in for sob that started this morning he had a PE a few days ago and was treated state that it feels just like last time he is on bipap fiot 50% rr 26
[2020-02-06 13:41] LABS: HEMOGLOBIN 9.7 g/dl (14.0-17.9); NEUTROPHILS # (AUTO) 4.2 X10'3 (1.8-7.7); WHITE BLOOD COUNT 5.3 X10'3 (4.5-11.0)
[2020-02-06 13:43] LABS: BASOPHILS % (AUTO) 0.6 % (0-1); EOSINOPHILS % (AUTO) 0.3 % (0-6); HEMATOCRIT 31.8 % (42.0-52.0); LYMPHOCYTES # (AUTO) 0.7 X10'3 (1.1-4.8); LYMPHOCYTES % (AUTO) 12.8 % (21-51); MEAN CORPUSCULAR HEMOGLOBIN 19.8 PG (27.0-31.0); MEAN CORPUSCULAR HGB CONC 30.5 g/dL (33.0-36.5); MEAN CORPUSCULAR VOLUME 64.9 FL (78-98); MEAN PLATELET VOLUME 8.9 FL (7.4-10.4); MONOCYTES # (AUTO) 0.3 X10'3 (0-0.9); NEUTROPHILS % (AUTO) 80.3 % (42-75); PLATELET COUNT 89 X10'3 (140-440); RED CELL DISTRIBUTION WIDTH 21.6 % (11.5-14.5)
[2020-02-06 13:50] LABS: ALANINE AMINOTRANSFERASE 34 U/L (12-78); ALBUMIN 2.7 G/DL (3.4-5.0); ALBUMIN/GLOBULIN RATIO 0.7 (1.1-1.5); ALKALINE PHOSPHATASE 154 IU/L (46-116); ANION GAP 11 (8-16); ASPARTATE AMINO TRANSFERASE 98 U/L (10-37); BILIRUBIN,TOTAL 1.2 MG/DL (0.1-1.0); BLOOD UREA NITROGEN 7 MG/DL (7-18); BUN/CREATININE RATIO 12.7 (5.4-32.0); CALCIUM 7.6 MG/DL (8.5-10.1); CHLORIDE 107 MMOL/L (99-107); CREATININE 0.55 MG/DL (0.60-1.10); GLUCOSE 133 MG/DL (70-104); POTASSIUM 3.1 MMOL/L (3.5-5.1); SODIUM 144 MMOL/L (135-145); TOTAL CARBON DIOXIDE 26.2 MMOL/L (24-32); TOTAL PROTEIN 6.5 G/DL (6.4-8.2); eGFR > 90 ML/MIN
[2020-02-06 13:50] LABS: ABG BASE EXCESS -0.5 mmol/L (-2.0-2.0); ABG HCO3 21.9 mmol/L (22.0-26.0); ABG OXYGEN SATURATION 97.8 % (94-97); ABG PCO2 (T) 28.7 mmHg (35.0-48.0); ABG PO2 (T) 108.7 mmHg (75.0-100.0); ALLEN'S TEST POSITIVE; FCOHb 1.7 % (0.0-3.9); FMetHb 0.3 % (0.0-1.5); FO2Hb 95.8 % (94-97); TOTAL HEMOGLOBIN 10.6 G/dl (14.0-18.0)
[2020-02-06] MEDS ORDERED: LIDOcaine 1% 30ml preserv. free vial SQ STA (13:55)
[2020-02-06 14:32] LABS: ANISOCYTOSIS 3+; HYPOCHROMASIA 1+; MICROCYTOSIS 2+; PLATELET ESTIMATE DECREASED; POLYCHROMASIA FEW; TARGET CELLS FEW
[2020-02-06 14:33] LABS: STOMATOCYTES 1+
--- NOTE | 2020-02-06 14:46 | NUR ---
threavent placed by dr messina
[2020-02-06] MEDS ORDERED: morphine 4 MG/ML inj SYRINge IV ONE (15:20)
[2020-02-06] MEDS ORDERED: mag hydrox/Alum hydrox/simeth 30ml oral suspension PO PRN (16:25)
[2020-02-06] MEDS ORDERED: ondansetron/PF 4mg/2ml inj IV PRN (16:25)
[2020-02-06] MEDS ORDERED: acetaminophen 325mg tablet PO PRN (16:25)
[2020-02-06] MEDS ORDERED: magnesium hydroxide 30ml (MOM) UD suspension PO PRN (16:25)
[2020-02-06] MEDS ORDERED: dextrose 50%-water 50ml dispensing syringe IV PRN (17:10)
[2020-02-06] MEDS ORDERED: thiamine 100mg/ml 2ml inj. IV ONE (17:10)
[2020-02-06] MEDS: HYDROcodone/acetaminophen 5mg/325mg tablet PO PRN ×2 (17:14→22:28)
--- NOTE | 2020-02-06 17:58 | NUR ---
CHEST TUBE CHANGED
[2020-02-06 18:00] VITALS: BP 144/64
--- NOTE | 2020-02-06 18:01 | NUR ---
Patient arrived from ED, patient has thoravent to right chest, shaking from withdrawal per the patient, atrium was just changed and is hooked to suction, patient has 10/10 pain but was given norco in ED, awaiting ativan to be verified. Patientsitting at side of bed, oriented to room and tele monitoring was initiated.
--- NOTE | 2020-02-06 18:13 | NUR ---
Patient in room PCU 3014. I have received report from Jyothi SWAN and had the opportunity to ask questions and assume patient care.
--- NOTE | 2020-02-06 18:33 | NUR ---
Problems reprioritized. Patient report given, questions answered & plan of care reviewed with Kendy SWAN. Patient stable at transfer of care, thoravent on right chest attached to atrium and suction, patient sitting at bedside, table games shift manager RN aware that patient is waiting for ativan as soon as pharmacy verifies order.
[2020-02-06] MEDS ORDERED: thiamine inj. 100 MG in normal saline 100ml IV soln 100 ML IV ONE (18:40)
--- NOTE | 2020-02-06 18:43 | NUR ---
ED RN stated that he had changed the atrium in the ER, I asked him to document in the I and O. This could mean that there was already 2000ml out from the chest tube.
[2020-02-06] MEDS: LORazepam 2 mg/ml vial IV PRN (19:25)
--- NOTE | 2020-02-06 20:03 | NUR ---
promotional table spacer PAGER ID: [phone] MESSAGE: Patient Marlon Curiel Rm [id number] Patient is complaining of 10/10 pain to chest tube site that was placed today. It was unrelieved by the [place] 5mg he received about 3 hours ago. Can he get anything else for pain? Thanks. Kendy SWAN ext. [phone]
[2020-02-06] MEDS: morphine 2 MG/ML inj. syringe IV PRN (21:02)
--- NOTE | 2020-02-06 21:10 | NUR ---
PAGER ID: [phone] MESSAGE: Patient Veena Rm [id number] Patient has K of 3.1. Can I get the electrolyte replacement protocol ordered? Kendy SWAN ext. [phone]
[2020-02-06] MEDS: K and/or MAG REPLACEMENT MC SCH (21:15)
[2020-02-06] MEDS ORDERED: magnesium Cl slow-release 64mg tablet PO PRN (21:15)
[2020-02-06] MEDS ORDERED: magnesium 2GM in 50ml NS 50 ML IV PRN (21:15)
[2020-02-06] MEDS ORDERED: potassium Cl 20 mEq SR tablet PO PRN (21:15)
[2020-02-06] MEDS ORDERED: potassium CL 10mEq/100ml bag 100 ML IV PRN (21:15)
[2020-02-06] MEDS ORDERED: magnesium 4gm in 100ml NS 100 ML IV PRN (21:15)
[2020-02-06 22:00] VITALS: BP 141/83
[2020-02-06] MEDS: potassium Cl 20 mEq SR tablet PO PRN (22:23)
--- NOTE | 2020-02-06 22:32 | NUR ---
promotional table spacer PAGER ID: [phone] MESSAGE: Patient Marlon Curiel RM [id number] Patient is requesting Nicotine patch if possible. He usually smokes 3-5 cigarettes per day. Thanks. Kendy SWAN ext. [phone]
[2020-02-07] MEDS: LORazepam 2 mg/ml vial IV PRN ×3 (00:13→19:32)
[2020-02-07 02:00] VITALS: BP 129/84
[2020-02-07] MEDS: morphine 2 MG/ML inj. syringe IV PRN ×3 (02:17→20:38)
[2020-02-07] MEDS: potassium Cl 20 mEq SR tablet PO PRN (02:21)
[2020-02-07 06:19] LABS: BASOPHILS % (AUTO) 0.6 % (0-1); EOSINOPHILS # (AUTO) 0.1 X10'3 (0-0.9); EOSINOPHILS % (AUTO) 2.8 % (0-6); HEMATOCRIT 28.1 % (42.0-52.0); HEMOGLOBIN 8.5 g/dl (14.0-17.9); LYMPHOCYTES # (AUTO) 0.8 X10'3 (1.1-4.8); LYMPHOCYTES % (AUTO) 22.6 % (21-51); MEAN CORPUSCULAR HEMOGLOBIN 19.9 PG (27.0-31.0); MEAN CORPUSCULAR HGB CONC 30.3 g/dL (33.0-36.5); MEAN CORPUSCULAR VOLUME 65.8 FL (78-98); MEAN PLATELET VOLUME 9.2 FL (7.4-10.4); MONOCYTES # (AUTO) 0.3 X10'3 (0-0.9); MONOCYTES % (AUTO) 7.5 % (2-12); NEUTROPHILS # (AUTO) 2.5 X10'3 (1.8-7.7); NEUTROPHILS % (AUTO) 66.5 % (42-75); PLATELET COUNT 62 X10'3 (140-440); RED BLOOD COUNT 4.28 X10'6 (4.70-6.10); RED CELL DISTRIBUTION WIDTH 21.2 % (11.5-14.5); WHITE BLOOD COUNT 3.7 X10'3 (4.5-11.0)
--- NOTE | 2020-02-07 06:19 | NUR ---
Problems reprioritized. Patient report given, questions answered & plan of care reviewed with Jyothi SWAN.
[2020-02-07 06:24] LABS: ALBUMIN 2.3 G/DL (3.4-5.0); ANION GAP 5 (8-16); BLOOD UREA NITROGEN 7 MG/DL (7-18); BUN/CREATININE RATIO 12.1 (5.4-32.0); CALCIUM 7.3 MG/DL (8.5-10.1); CHLORIDE 105 MMOL/L (99-107); CREATININE 0.58 MG/DL (0.60-1.10); GLUCOSE 89 MG/DL (70-104); POTASSIUM 3.6 MMOL/L (3.5-5.1); SODIUM 140 MMOL/L (135-145); TOTAL CARBON DIOXIDE 30.1 MMOL/L (24-32); eGFR > 90 ML/MIN
[2020-02-07] MEDS: K and/or MAG REPLACEMENT MC SCH ×2 (06:36→20:00)
[2020-02-07 07:00] VITALS: BP 147/81
[2020-02-07 07:51] LABS: ANISOCYTOSIS 2+; HYPOCHROMASIA 2+; PLATELET ESTIMATE DECREASED
[2020-02-07 07:52] LABS: STOMATOCYTES 1+; TARGET CELLS FEW
[2020-02-07] MEDS: nicotine 14mg patch - 24hr TD SCH (08:04)
[2020-02-07 11:00] VITALS: BP 129/83
[2020-02-07] MEDS: HYDROcodone/acetaminophen 5mg/325mg tablet PO PRN ×3 (14:09→23:10)
[2020-02-07 15:51] VITALS: BP 135/85
[2020-02-07 18:00] VITALS: BP 132/87
--- NOTE | 2020-02-07 18:18 | NUR ---
Problems reprioritized. Patient report given, questions answered & plan of care reviewed with Yelena SWAN. Patient stable at transfer of care.
--- NOTE | 2020-02-07 18:48 | NUR ---
Patient in room PCU 3014. I have received report from SOSA GARCIA AND SOSA LOERA and had the opportunity to ask questions and assume patient care.
[2020-02-07] MEDS: apixaban 5mg tablet PO SCH (19:28)
[2020-02-07 22:00] VITALS: BP_SYST 114; BP_DIAS 7; BP_DIAS 72
[2020-02-08] MEDS: morphine 2 MG/ML inj. syringe IV PRN ×3 (01:59→12:34)
[2020-02-08 02:00] VITALS: BP 132/98
[2020-02-08] MEDS: LORazepam 2 mg/ml vial IV PRN ×2 (02:11→16:43)
[2020-02-08] MEDS: HYDROcodone/acetaminophen 5mg/325mg tablet PO PRN ×3 (03:55→22:14)
--- NOTE | 2020-02-08 04:00 | NUR ---
CHANGED THE [facility].
[2020-02-08 05:14] LABS: EOSINOPHILS # (AUTO) 0.2 X10'3 (0-0.9); HEMOGLOBIN 8.8 g/dl (14.0-17.9); MEAN CORPUSCULAR HGB CONC 30.2 g/dL (33.0-36.5); MEAN CORPUSCULAR VOLUME 66.7 FL (78-98); MONOCYTES # (AUTO) 0.3 X10'3 (0-0.9)
[2020-02-08 05:17] LABS: BASOPHILS % (AUTO) 0.5 % (0-1); EOSINOPHILS % (AUTO) 4.6 % (0-6); HEMATOCRIT 29.2 % (42.0-52.0); LYMPHOCYTES % (AUTO) 23.8 % (21-51); MEAN CORPUSCULAR HEMOGLOBIN 20.1 PG (27.0-31.0); MEAN PLATELET VOLUME 9.4 FL (7.4-10.4); MONOCYTES % (AUTO) 6.1 % (2-12); NEUTROPHILS # (AUTO) 2.7 X10'3 (1.8-7.7); PLATELET COUNT 62 X10'3 (140-440); RED BLOOD COUNT 4.38 X10'6 (4.70-6.10); RED CELL DISTRIBUTION WIDTH 21.4 % (11.5-14.5); WHITE BLOOD COUNT 4.2 X10'3 (4.5-11.0)
[2020-02-08 05:19] LABS: ALBUMIN 2.2 G/DL (3.4-5.0); ANION GAP 5 (8-16); BLOOD UREA NITROGEN 9 MG/DL (7-18); BUN/CREATININE RATIO 13.6 (5.4-32.0); CALCIUM 7.4 MG/DL (8.5-10.1); CHLORIDE 104 MMOL/L (99-107); CREATININE 0.66 MG/DL (0.60-1.10); GLUCOSE 86 MG/DL (70-104); POTASSIUM 3.4 MMOL/L (3.5-5.1); SODIUM 137 MMOL/L (135-145); TOTAL CARBON DIOXIDE 27.9 MMOL/L (24-32); eGFR > 90 ML/MIN
--- NOTE | 2020-02-08 06:25 | NUR ---
Problems reprioritized. Patient report given, questions answered & plan of care reviewed with SOSA GARCIA.
--- NOTE | 2020-02-08 06:30 | NUR ---
Problems reprioritized. Patient report given, questions answered & plan of care reviewed with Yelena SWAN. Patient stable at transfer of care.
[2020-02-08 07:00] VITALS: BP 134/89
[2020-02-08 07:07] LABS: PLATELET ESTIMATE DECREASED
[2020-02-08 07:09] LABS: ANISOCYTOSIS 3+
[2020-02-08 07:10] LABS: SPHEROCYTES FEW; STOMATOCYTES 1+
[2020-02-08 07:11] LABS: ELLIPTOCYTES FEW
[2020-02-08 07:12] LABS: LARGE PLATELETS FEW
[2020-02-08 07:13] LABS: HYPOCHROMASIA 2+; POLYCHROMASIA 1+
[2020-02-08] MEDS: K and/or MAG REPLACEMENT MC SCH ×2 (07:43→20:16)
[2020-02-08] MEDS: spironolactone 25 MG tablet PO SCH (07:50)
[2020-02-08] MEDS: folic acid 0.4mg tablet PO SCH (07:51)
[2020-02-08] MEDS: potassium Cl 20 mEq SR tablet PO PRN ×2 (07:52→19:31)
[2020-02-08] MEDS: thiamine 100mg tablet PO SCH (07:52)
[2020-02-08] MEDS: nicotine 14mg patch - 24hr TD SCH (07:53)
--- NOTE | 2020-02-08 08:11 | NUR ---
Spoke with Angio, instructed to disconnect chest tube atrium from suction, and also okayed to give eliquis. Will continue to monitor.
[2020-02-08] MEDS: apixaban 5mg tablet PO SCH ×2 (09:31→20:00)
[2020-02-08 11:00] VITALS: BP 116/89
--- NOTE | 2020-02-08 12:45 | NUR ---
Angio removed chest tube and is ordering chest xray, will continue to monitor closely.
--- NOTE | 2020-02-08 12:45 | NUR ---
PAGER ID: [phone] MESSAGE: Erasmo 301Veena Scruggs. Angio removed chest tube, and ordered chest x ray. Also recommended the patient be evaluated for a paracentesis tomorrow. Thanks, Jyothi [phone]
[2020-02-08 15:00] VITALS: BP 119/72
[2020-02-08] MEDS ORDERED: LORazepam 2 mg/ml vial IV PRN (17:10)
[2020-02-08 18:00] VITALS: BP 136/87
--- NOTE | 2020-02-08 18:29 | NUR ---
Orientee documentation: I have reviewed and agree with interventions, assessments performed and documented by Mer SWAN. [place] Medication Administration: For this medication-pass time frame, medication were reviewed, dispensed, administered and documented per hospital policy by Mer SWAN.
--- NOTE | 2020-02-08 18:29 | NUR ---
Problems reprioritized. Patient report given, questions answered & plan of care reviewed with Ewelina SWAN. Patient stable at transfer of care.
--- NOTE | 2020-02-08 18:29 | NUR ---
Problems reprioritized. Patient report given to Ewelina, questions answered & plan of care reviewed with SOSA GARCIA.
[2020-02-08 22:00] VITALS: BP 128/88
[2020-02-08] MEDS: LORazepam 1 MG tablet PO PRN (23:24)
[2020-02-09] MEDS: potassium Cl 20 mEq SR tablet PO PRN (01:43)
[2020-02-09 02:00] VITALS: BP 124/78
[2020-02-09] MEDS: HYDROcodone/acetaminophen 5mg/325mg tablet PO PRN ×3 (02:12→14:44)
[2020-02-09] MEDS: LORazepam 1 MG tablet PO PRN ×3 (04:24→11:11)
[2020-02-09 05:52] LABS: EOSINOPHILS # (AUTO) 0.2 X10'3 (0-0.9); HEMOGLOBIN 9.2 g/dl (14.0-17.9); LYMPHOCYTES # (AUTO) 0.8 X10'3 (1.1-4.8); LYMPHOCYTES % (AUTO) 20.5 % (21-51); MEAN CORPUSCULAR VOLUME 67.2 FL (78-98)
[2020-02-09 05:54] LABS: BASOPHILS % (AUTO) 0.7 % (0-1); EOSINOPHILS % (AUTO) 5.7 % (0-6); HEMATOCRIT 30.8 % (42.0-52.0); MEAN CORPUSCULAR HEMOGLOBIN 20.1 PG (27.0-31.0); MEAN CORPUSCULAR HGB CONC 29.9 g/dL (33.0-36.5); MEAN PLATELET VOLUME 9.5 FL (7.4-10.4); MONOCYTES # (AUTO) 0.3 X10'3 (0-0.9); MONOCYTES % (AUTO) 6.4 % (2-12); NEUTROPHILS # (AUTO) 2.6 X10'3 (1.8-7.7); NEUTROPHILS % (AUTO) 66.7 % (42-75); PLATELET COUNT 68 X10'3 (140-440); RED BLOOD COUNT 4.58 X10'6 (4.70-6.10); RED CELL DISTRIBUTION WIDTH 21.9 % (11.5-14.5); WHITE BLOOD COUNT 3.9 X10'3 (4.5-11.0)
[2020-02-09 06:00] VITALS: BP 139/93
[2020-02-09 06:06] LABS: ALBUMIN 2.2 G/DL (3.4-5.0); ANION GAP 6 (8-16); BLOOD UREA NITROGEN 10 MG/DL (7-18); BUN/CREATININE RATIO 14.5 (5.4-32.0); CALCIUM 7.6 MG/DL (8.5-10.1); CHLORIDE 104 MMOL/L (99-107); CREATININE 0.69 MG/DL (0.60-1.10); GLUCOSE 92 MG/DL (70-104); POTASSIUM 3.9 MMOL/L (3.5-5.1); SODIUM 138 MMOL/L (135-145); TOTAL CARBON DIOXIDE 27.8 MMOL/L (24-32); eGFR > 90 ML/MIN
--- NOTE | 2020-02-09 06:07 | NUR ---
Problems reprioritized. Patient report given, questions answered & plan of care reviewed with SOSA Boss.
--- NOTE | 2020-02-09 06:15 | NUR ---
Patient in room PCU 3014B. I have received report from Ewelina SWAN and had the opportunity to ask questions and assume patient care. Patient laying in bed, eyes closed, BiPAP in place, no signs of distress, will continue to monitor.
[2020-02-09 06:36] LABS: HYPOCHROMASIA 2+; PLATELET ESTIMATE DECREASED; POLYCHROMASIA FEW
[2020-02-09 06:37] LABS: ANISOCYTOSIS 3+; MICROCYTOSIS 2+
[2020-02-09] MEDS: K and/or MAG REPLACEMENT MC SCH (08:00)
[2020-02-09] MEDS: apixaban 5mg tablet PO SCH (08:00)
[2020-02-09] MEDS: thiamine 100mg tablet PO SCH (08:03)
[2020-02-09] MEDS: spironolactone 25 MG tablet PO SCH (08:04)
[2020-02-09] MEDS: nicotine 14mg patch - 24hr TD SCH (08:06)
[2020-02-09] MEDS: folic acid 0.4mg tablet PO SCH (08:12)
[2020-02-09] MEDS ORDERED: furosemide 40mg/4ml inj IV ONE (10:45)
[2020-02-09 11:00] VITALS: BP 129/80
[2020-02-09] MEDS: morphine 2 MG/ML inj. syringe IV PRN (11:19)
[2020-02-09 11:54] VITALS: BP 125/97
[2020-02-09 12:11] VITALS: BP 131/90
--- NOTE | 2020-02-09 12:28 | NUR ---
PAGER ID: [phone] MESSAGE: Karyn lemus [phone]. RE Chris Curiel [id number]. Pt had paracentesis, 600 out, wants to be discharged. Please advise. Thanks!
--- NOTE | 2020-02-09 12:38 | NUR ---
PAGER ID: [phone] MESSAGE: Karyn lemus [phone]. RE Chris Curiel [id number]. Also the Manny, is requesting that the doctor speak with her prior to patient discharge. Her # [phone]. Thanks!
--- NOTE | 2020-02-09 14:22 | NUR ---
O2 Sat at rest on room air: 82% If below 89%: Recovery O2 Sat at rest on 4.5 LPM: 94% via NC No further documentation is necessary. If patient does not drop below 89% while ambulating, he/she does not qualify for home O2.
[2020-02-09] MEDS ORDERED: FURO-150 PO (14:24)
[2020-02-09] MEDS ORDERED: NICO-631 TD (14:24)
--- NOTE | 2020-02-09 14:30 | NUR ---
PAGER ID: [phone] MESSAGE: Karyn lemus [phone]. RE Chris Curiel [id number]. Pt is requesting a few days of [place] for pain at home. Would you write him a prescription? Thanks!
[2020-02-09 15:00] VITALS: BP 119/85
--- NOTE | 2020-02-09 15:10 | NUR ---
Spoke with Louise from case management, will arrange for home oxygen therapy
--- NOTE | 2020-02-09 15:36 | NUR ---
PAGER ID: [phone] MESSAGE: Karyn lemus [phone]. RE Chris Smalls [id number]. Pt requesting Rx for a few days of [place] for discharge. Would you be able to write him a prescription? Thanks!
[2020-02-09] MEDS ORDERED: HYDR-4353 PO (15:49)
--- NOTE | 2020-02-09 16:22 | NUR ---
Per MD order by Dr. Coates, patient is stable for discharge home. Discharge packet printed and reviewed with patient. All prescriptions sent to pharmacy of choice. Discharge packet, follow up instructions, and return precautions sent discussed with patient. All questions answered. IV removed with cannula intact, tele monitor removed. All belongings sent with patient. Home medications returned to patient prior to discharge home. Per case management, oxygen therapy has been arranged for home and will be calling patient at home to deliver services. Patient indicated understanding, all questions answered. Patient escorted via wheelchair to private vehicle to go home with family.
[2020-02-10] MEDS ORDERED: LORazepam 2 mg/ml vial IV PRN (17:10)
[2020-02-10] MEDS ORDERED: LORazepam 1 MG tablet PO PRN (17:10)
== END 2020-02-09 16:23 | disposition home or self-care (01) | DRG 143 ==
LOC: ER 13:14 → ED HOLD 16:25 → EDBEDREQ 17:06 → PCU 3S 17:48
PROVIDERS: ADMIT Family Medicine; ATTEND Family Medicine
PROC: 0W9930Z Drainage of Right Pleural Cavity with Drainage Device, Percutaneous Approach (ICD-10-PCS; principal; 2020-02-09)
DX: J93.83 Other pneumothorax (principal); J96.01 Acute respiratory failure with hypoxia; K76.9 Liver disease, unspecified; I26.99 Other pulmonary embolism without acute cor pulmonale; K70.31 Alcoholic cirrhosis of liver with ascites; D64.9 Anemia, unspecified; Z86.711 Personal history of pulmonary embolism; Z87.891 Personal history of nicotine dependence
CPT/HCPCS: 32551; 36415; 36600; 49083; 71045; 71046; 80048; 80053; 82803; 83605; 83880; 85018; 85025; 87040; 87081; 93005; 93308; 94660; 94760; 96374; 99291; G0378; J1940; J2060; J2270; J3411

== ENCOUNTER 2020-02-15 06:20 | Day surgery (SDC) | payer MEDICAID ==
[~2020-02-15] VITALS: Ht 177.8 cm; Wt 111.2 kg
[~2020-02-15 06:20] MED LIST changes: +FURO-150 PO; +HYDR-4353 PO; +NICO-631 TD
[2020-02-15] MEDS ORDERED: normal saline 1000ml 1,000 ML IV PRN (06:40)
[2020-02-15] MEDS ORDERED: albumin 25% 100mL bottle x 1 IV PRN (06:40)
[2020-02-15 08:17] VITALS: BP 109/40
== END 2020-02-15 09:04 | disposition home or self-care (01) ==
LOC: SSTAY O 06:20
PROVIDERS: ATTEND Radiology Vascular & Interventional Radiology
DX: K70.31 Alcoholic cirrhosis of liver with ascites (principal); R14.0 Abdominal distension (gaseous); D64.9 Anemia, unspecified; G47.30 Sleep apnea, unspecified; D69.6 Thrombocytopenia, unspecified; Z98.890 Other specified postprocedural states; Z86.711 Personal history of pulmonary embolism; F10.20 Alcohol dependence, uncomplicated; Z79.899 Other long term (current) drug therapy
CPT/HCPCS: 76705

== ENCOUNTER 2020-02-25 06:28 | Day surgery (SDC) | payer MEDICAID ==
[~2020-02-25] VITALS: Ht 180.3 cm; Wt 111.1 kg
[2020-02-25] VITALS (10 sets, daily range): BP systolic 125–147; BP diastolic 75–106
[2020-02-25] MEDS ORDERED: albumin 25% 100mL bottle x 1 IV PRN (06:45)
[2020-02-25] MEDS ORDERED: normal saline 1000ml 1,000 ML IV PRN (06:45)
[2020-02-25] MEDS ORDERED: HYDR-3972 PO (07:12)
[2020-02-25] MEDS ORDERED: FURO20TA4 PO (07:12)
[2020-02-25] MEDS ORDERED: NICO-630 TD (07:13)
[2020-02-25] MEDS ORDERED: HYDROcodone/acetaminophen 10/325mg tab PO PRN (12:20)
== END 2020-02-25 14:21 | disposition home or self-care (01) ==
LOC: SSTAY O 06:28
PROVIDERS: ATTEND Radiology Diagnostic Radiology
DX: J90 Pleural effusion, not elsewhere classified (principal); K70.31 Alcoholic cirrhosis of liver with ascites; D64.9 Anemia, unspecified; G47.30 Sleep apnea, unspecified; D69.6 Thrombocytopenia, unspecified; Z86.711 Personal history of pulmonary embolism; Z98.890 Other specified postprocedural states; F10.20 Alcohol dependence, uncomplicated; Z79.899 Other long term (current) drug therapy
CPT/HCPCS: 32555; 49083; 71045; P9047

== ENCOUNTER 2025-07-11 08:33 | Emergency (ER) | payer MEDICAID ==
[~2025-07-11] VITALS: Ht 177.8 cm; Wt 104.5 kg
[2025-07-11 08:51] VITALS: BP 162/96; PULSE 86; RESP 18; TEMP 98; O2SAT 99
[2025-07-19] MEDS ORDERED: SULF1TAB49 PO (06:46)
== END 2025-07-11 10:22 | disposition left against medical advice (07) ==
LOC: ER 08:34
DX: M54.2 Cervicalgia (principal); Z53.21 Procedure and treatment not carried out due to patient leaving prior to being seen by health care provider
CPT/HCPCS: 99281